=== PATIENT | female | born 1990 | race African-American/Black ===

== ENCOUNTER 2020-01-03 07:57 | Emergency (ER) | payer SELFPAY ==
[~2020-01-03] VITALS: Ht 160 cm; Wt 54.4 kg
--- NOTE | 2020-01-03 08:05 | Emergency Room Report ---
History of Present Illness General Chief Complaint: Headache Source: Patient, EMS Present Illness HPI Disclaimer: Please note that this report is being documented using DRAGON technology. This can lead to erroneous entry secondary to incorrect interpretation by the dictating instrument. HPI: 29-year-old female comes in by EMS for evaluation of headache. She states she had a headache because she has not eaten. Denies injury, loss conscious, seizure, fever, chills. On arrival the patient has a sandwich from EMS and is eating and comfortably in bed. States her headache is better. Denies nausea or vomiting. No other complaints from patient at this time. Denies numbness, tingling, weakness. She ambulates with the use of a cane and is wearing a brace on her left knee. PMH: Reviewed PSH: Reviewed Allergies: Reviewed Social Hx: Reviewed Allergies: Coded Allergies: No Known Allergies (Unverified , 01/03/20) COVID-19 Screening Contact w/high risk pt: No Experienced COVID-19 symptoms?: No COVID-19 Testing performed TEST LEAD: No Patient History Last Menstrual Period: na Nursing Documentation-PMH Past Medical History: No History, Except For History Of Psychiatric Problem: Yes Review of Systems All Other Systems: negative except mentioned in HPI Physical Exam Vital Signs Date Time Temp Pulse Resp B/P (MAP) Pulse Ox O2 Delivery O2 Flow Rate FiO2 01/03/20 07:54 98.1 90 18 122/70 (87) 100 Room Air General: Awake and alert, no acute distress HEENT: NC/AT. EOMI. PERRLA. Noninjected sclera. No purulent drainage or edema. Cardiovascular: RRR. S1 and S2 normal. No murmur appreciated Resp: Normal work of breathing. No cough, wheezing or crackles appreciated Abdomen: Abdomen is soft, nondistended. Nontender Skin: Intact. No abrasions, laceration or rash over the exposed skin MSK: Normal tone and bulk. Moving all extremities. No obvious deformity. Knee brace applied. Cane at bedside. Neuro: Awake and alert. Mentating appropriately. Medical Decision Making Homeless Attestation Patient is homelss. Patient has been medically screened and is stable for outpatient follow up Diagnostic Impression: Primary Impression: Headache ER Course 29-year-old female brought in by EMS for evaluation of headache. Patient states she just needs something to eat. She is in no acute distress and has a nonfocal neurologic exam. Little concern for intracranial injury and the patient denies trauma. Will provide additional fluid and Tylenol. Monitor in the emergency department if symptoms improve patient may be discharged with outpatient follow- up. Patient found sleeping comfortably on reevaluation. Food was provided to the patient to take with her. No complaints at this time. Ambulated out of the ER. Last Vital Signs Date Time Temp Pulse Resp B/P (MAP) Pulse Ox O2 Delivery O2 Flow Rate FiO2 01/03/20 07:54 98.1 90 18 122/70 (87) 100 Room Air Disposition: HOME, SELF-CARE Condition: Stable Sterling Mendes MD Jan 03, 2020 08:04
[2020-01-03 08:10] VITALS: BP 125/72
[2020-01-03 08:30] VITALS: BP 127/77
== END 2020-01-03 08:30 | disposition home or self-care (01) ==
LOC: EDBD 07:57 → EMR 08:15
DX: R51.9 Headache, unspecified (principal)
CPT/HCPCS: 99281